=== PATIENT | female | born 1995 | race African-American/Black ===

== ENCOUNTER 2022-03-07 12:45 | Emergency (ER) | payer BC ==
[~2022-03-07] VITALS: Ht 154.9 cm; Wt 56.8 kg
[2022-03-07 14:27] LABS: EOSINOPHILS % (AUTO) 1.8 % (1.0-6.0); HEMATOCRIT 40.4 % (36-46); LYMPHOCYTES % (AUTO) 29.7 % (22.0-44.0); MEAN CORPUSCULAR HEMOGLOBIN 27.4 pg (26.0-34.0); MEAN CORPUSCULAR HGB CONC 32.3 G/dL (31.0-37.0); MEAN CORPUSCULAR VOLUME 85 fL (80-100); MONOCYTES % (AUTO) 8.9 % (2.0-9.0); NEUTROPHILS % (AUTO) 58.9 % (40.0-70.0); PLATELET COUNT (AUTO) 257 K/uL (150-450); RED BLOOD CELL COUNT(AUTO) 4.76 MIL/uL (4.00-5.20); RED CELL DISTRIBUTION WIDTH 14.3 % (11.5-14.5)
[2022-03-07 14:28] LABS: BASOPHILS % (AUTO) 0.7 % (0.0-2.0); LYMPHOCYTES # (AUTO) 2.5 K/uL (1.0-4.8); MONOCYTES # (AUTO) 0.8 K/uL (0.1-1.0)
[2022-03-07] MEDS ORDERED: SODIUM CHLORIDE 0.9% 1,000 ML IV ONE ×2 (14:30→15:30)
[2022-03-07] MEDS ORDERED: ONDANSETRON HCL 4 MG/2 ML VIAL IVP ONE (14:30)
[2022-03-07] MEDS ORDERED: KETOROLAC TROMETHAMINE 30 MG/ML VIAL IVP ONE (14:30)
[2022-03-07 14:36] LABS: ANION GAP 5 mmol/L (8-16); CARBON DIOXIDE 30 mmol/L (22-29); CHLORIDE 105 mmol/L (98-107); CREATININE 0.88 mg/dL (0.60-1.30); GLUCOSE,RANDOM 98 mg/dL (70-110); POTASSIUM 4.4 mmol/L (3.5-5.1); SODIUM SERUM 140 mmol/L (136-145); UREA NITROGEN, BLOOD 9 mg/dL (7-18)
[2022-03-07 14:38] LABS: GLOMERULAR FILTR. RATE CALC > 60 mL/min (>60)
[2022-03-07 14:49] LABS: ALANINE AMINOTRANSFERASE 21 U/L (12-78); ALBUMIN 3.7 g/dL (3.4-5.0); ALKALINE PHOSPHATASE 58 U/L (46-116); ASPARTATE AMINOTRANSFERASE 15 U/L (15-37); BILIRUBIN,TOTAL 0.2 mg/dL (0.1-1.0); HCG,QUANTITATIVE < 1 mIU/mL (0-6); LIPASE 131 U/L (73-393); TOTAL PROTEIN, SERUM 7.4 g/dL (6.4-8.2)
[2022-03-07 16:48] LABS: APPEARANCE,URINE CLEAR (CLEAR); BILIRUBIN,URINE NEGATIVE (NEGATIVE); GLUCOSE, URINE (UA) NEGATIVE (NEGATIVE); KETONES,URINE NEGATIVE (NEGATIVE); LEUKOCYTE ESTERASE ,URINE NEGATIVE (NEGATIVE); NITRATE,URINE NEGATIVE (NEGATIVE); OCCULT BLOOD,URINE NEGATIVE (NEGATIVE); PROTEIN,URINE TRACE mg/dL (NEGATIVE); SPECIFIC GRAVITIY, URINE 1.026 (1.003-1.030); UROBILINOGEN,URINE <=1.0 mg/dL (<=1.0)
[2022-03-07] MEDS ORDERED: IBUP-2070 PO (17:19)
[2022-03-07] MEDS ORDERED: DOCU-385 PO (17:19)
[2022-03-07 17:43] VITALS: BP 127/82
== END 2022-03-07 17:43 | disposition home or self-care (01) ==
LOC: EMS 12:45
DX: R07.81 Pleurodynia (principal); K59.00 Constipation, unspecified; R59.0 Localized enlarged lymph nodes; N64.4 Mastodynia
CPT/HCPCS: 99285; 74176; 96374; 71045; 96361; 96375; 80053; 81002; 81003; 83690; 84702; 85025; 36415; 93005; J1885; J2405; J7030

== ENCOUNTER 2023-01-16 21:39 | Emergency (ER) | payer BC ==
[~2023-01-16] VITALS: Ht 157.5 cm; Wt 63.0 kg
[~2023-01-16 21:39] MED LIST: DOCU-385 PO; IBUP-1492 PO
[2023-01-16 21:43] VITALS: BP 112/68; PULSE 75; RESP 16; TEMP 98.3
[2023-01-16] MEDS ORDERED: SODIUM CHLORIDE 0.9% 1,000 ML IV ONE (22:45)
[2023-01-16] MEDS ORDERED: METOCLOPRAMIDE HCL 5 MG/ML 2 ML VIAL IVP ONE (22:45)
[2023-01-17] MEDS ORDERED: ALBU18HF12 IH (18:18)
[2023-01-17] MEDS ORDERED: ACET-2080 PO (22:54)
[2023-01-17] MEDS ORDERED: IBUP-1554 PO (22:54)
[2023-01-17] MEDS ORDERED: GUAIFDM PO (22:54)
[2023-01-17] MEDS ORDERED: ONDA-104 PO (22:57)
== END 2023-01-16 23:30 | disposition left against medical advice (07) ==
LOC: EMS 21:40
DX: K92.0 Hematemesis (principal); Z53.21 Procedure and treatment not carried out due to patient leaving prior to being seen by health care provider
CPT/HCPCS: 99281; Z7502

== ENCOUNTER 2023-01-17 18:06 | Emergency (ER) | payer BC, OTHER ==
[~2023-01-17] VITALS: Ht 157.5 cm; Wt 59.1 kg
[2023-01-17 18:16] VITALS: TEMP 98.1
[2023-01-17] MEDS ORDERED: ALBU18HF12 IH (18:18)
[2023-01-17 19:12] LABS: COVID AG,FIA SOURCE NASAL SWAB
[2023-01-17 19:36] LABS: INFLUENZA TYPE A NEGATIVE FOR TYPE A (NEGATIVE); INFLUENZA TYPE B NEGATIVE FOR TYPE B (NEGATIVE)
[2023-01-17] MEDS ORDERED: ONDANSETRON HCL 4 MG/2 ML VIAL IM ONE (21:45)
[2023-01-17] MEDS ORDERED: KETOROLAC TROMETHAMINE 60 MG/2 ML VIAL IM ONE (21:45)
[2023-01-17 22:15] LABS: BASOPHILS % (AUTO) 0.7 % (0.0-2.0); EOSINOPHILS % (AUTO) 1.6 % (1.0-6.0); HEMATOCRIT 37.6 % (36-46); HEMOGLOBIN 11.7 g/dL (12.0-16.0); LYMPHOCYTES # (AUTO) 2.3 K/uL (1.0-4.8); LYMPHOCYTES % (AUTO) 32.3 % (22.0-44.0); MEAN CORPUSCULAR HEMOGLOBIN 25.9 pg (26.0-34.0); MEAN CORPUSCULAR HGB CONC 31.2 G/dL (31.0-37.0); MEAN CORPUSCULAR VOLUME 83 fL (80-100); MONOCYTES # (AUTO) 0.5 K/uL (0.1-1.0); MONOCYTES % (AUTO) 6.9 % (2.0-9.0); NEUTROPHILS # (AUTO) 4.2 K/uL (1.8-7.7); NEUTROPHILS % (AUTO) 58.5 % (40.0-70.0); PLATELET COUNT (AUTO) 255 K/uL (150-450); RED BLOOD CELL COUNT(AUTO) 4.53 MIL/uL (4.00-5.20); RED CELL DISTRIBUTION WIDTH 14.2 % (11.5-14.5)
[2023-01-17] MEDS ORDERED: ACETAMINOPHEN 500 MG TABLET PO ONE (22:15)
[2023-01-17 22:27] LABS: ANION GAP 5 mmol/L (8-16); CALCIUM, TOTAL 8.7 mg/dL (8.8-10.5); CARBON DIOXIDE 26 mmol/L (22-29); CHLORIDE 105 mmol/L (98-107); CREATININE 0.88 mg/dL (0.60-1.30); GLOMERULAR FILTR. RATE CALC > 60 mL/min (>60); GLUCOSE,RANDOM 99 mg/dL (70-110); POTASSIUM 4.1 mmol/L (3.5-5.1); SODIUM SERUM 136 mmol/L (136-145)
[2023-01-17 22:30] LABS: ALANINE AMINOTRANSFERASE 14 U/L (12-78); ALBUMIN 3.3 g/dL (3.4-5.0); ALKALINE PHOSPHATASE 61 U/L (46-116); ASPARTATE AMINOTRANSFERASE 11 U/L (15-37); BILIRUBIN,TOTAL 0.2 mg/dL (0.1-1.0); LIPASE 125 U/L (73-393); TOTAL PROTEIN, SERUM 6.8 g/dL (6.4-8.2)
[2023-01-17] MEDS ORDERED: GUAIFDM PO (22:54)
[2023-01-17] MEDS ORDERED: IBUP-1554 PO (22:54)
[2023-01-17] MEDS ORDERED: ACET-2080 PO (22:54)
[2023-01-17] MEDS ORDERED: ONDA-104 PO (22:57)
[2023-01-17 23:36] VITALS: BP 132/78; PULSE 84; RESP 16
== END 2023-01-17 23:36 | disposition home or self-care (01) ==
LOC: EMS 18:07
DX: J06.9 Acute upper respiratory infection, unspecified (principal); R11.10 Vomiting, unspecified; R59.1 Generalized enlarged lymph nodes; J45.909 Unspecified asthma, uncomplicated; F17.210 Nicotine dependence, cigarettes, uncomplicated; Z20.822 Contact with and (suspected) exposure to COVID-19
CPT/HCPCS: 99284; 87426; 80053; 83690; 84703; 85025; 87804; 36415; 96372; J1885; J2405